=== PATIENT | female | born 1965 | race Caucasian/White ===

== ENCOUNTER 2024-03-28 19:31 | Emergency (ER) | payer OTHER ==
[2024-03-28 19:41] VITALS: BP 126/77; PULSE 81; RESP 18; TEMP 98.6; BMI 24.0
[2024-03-28] MEDS ORDERED: DIPHTH,PERTUSS(ACELL),TET 0.5 ML DISP.SYRIN IM ONE (20:09)
[2024-03-28] MEDS: DIPHTH,PERTUSS(ACELL),TET 0.5 ML DISP.SYRIN IM ONE (20:23)
[2024-03-28] MEDS ORDERED: CEPHALEXIN MONOHYDRATE 500 MG CAPSULE (UD) ONE (21:21)
[2024-03-28] MEDS: CEPHALEXIN MONOHYDRATE 500 MG CAPSULE (UD) PO ONE (21:23)
== END 2024-03-28 21:30 | disposition short-term general hospital (02) ==
LOC: FER 19:31
PROC: 3E0234Z Introduction of Serum, Toxoid and Vaccine into Muscle, Percutaneous Approach (ICD-10-PCS; principal; 2024-03-28)
DX: S81.812A Laceration without foreign body, left lower leg, initial encounter (principal); Z23 Encounter for immunization; W10.8XXA Fall (on) (from) other stairs and steps, initial encounter
CPT/HCPCS: 73590-TC-LT-FY; 90715; 99285-25